=== PATIENT | male | born 1980 | race African-American/Black ===

== ENCOUNTER 2017-11-21 11:06 | Emergency (ER) | payer OTHER ==
[~2017-11-21] VITALS: Ht 175.3 cm; Wt 81.8 kg
[2017-11-21 11:07] VITALS: BP 185/95; PULSE 86; RESP 18; TEMP 98.8; O2SAT 100
[2017-11-21] MEDS ORDERED: DILT240C44 PO (12:33)
[2017-11-21] MEDS ORDERED: LOSA50TA PO (12:33)
[2017-11-21] MEDS ORDERED: LABE100T2 PO (12:33)
[2017-11-21] MEDS ORDERED: BACT800T5 PO (13:04)
[2017-11-21] MEDS ORDERED: CLIN150C14 PO (13:04)
--- NOTE | 2017-11-21 13:05 | PD ---
HPI Chief Complaint: Skin Problem Time Seen by Provider: 12:22 Travel History International Travel<30 days: No Contact w/Intl Traveler<30days: No Traveled to known affect area: No History of Present Illness HPI 37-year-old male complains of pain and swelling the right ear and right sided facial area. Patient states the symptoms started 2 days ago. Patient denies any injury. Patient denies any fever chills. Patient has history of end-stage renal disease and on dialysis. Patient also has history hypertension. Patient states that he is up-to-date with TD booster. PFSH Past Medical History Hypertension: Yes Renal Failure: Yes Influenza Vaccination: Yes Social History Alcohol Use: No Tobacco Use: No Substance Use: No Allergies-Medications (Allergen,Severity, Reaction): Coded Allergies: lisinopril (Verified Allergy, Unknown, 11/21/17) Reported Meds & Prescriptions Reported Meds & Active Scripts Active Reported Losartan (Losartan Potassium) 50 Mg Tab 50 Mg PO DAILY Diltiazem CD 24 HR 240 Mg Caper 240 Mg PO HS Labetalol (Labetalol HCl) 100 Mg Tab 100 Mg PO BID Review of Systems General / Constitutional: No: Fever Eyes: No: Visual changes HENT: No: Headaches Cardiovascular: No: Chest Pain or Discomfort Respiratory: No: Shortness of Breath Gastrointestinal: No: Abdominal Pain Genitourinary: No: Dysuria Musculoskeletal: No: Pain Skin: No Rash Neurologic: No: Weakness Psychiatric: No: Depression Endocrine: No: Polydipsia Hematologic/Lymphatic: No: Easy Bruising Physical Exam Narrative GENERAL: Well-nourished, well-developed patient. SKIN: Focused skin assessment warm/dry. HEAD: Normocephalic. EYES: No scleral icterus. No injection or drainage. NECK: Supple, trachea midline. No JVD or lymphadenopathy. CARDIOVASCULAR: Regular rate and rhythm without murmurs, gallops, or rubs. RESPIRATORY: Breath sounds equal bilaterally. No accessory muscle use. GASTROINTESTINAL: Abdomen soft, non-tender, nondistended. MUSCULOSKELETAL: No cyanosis, or edema. BACK: Nontender without obvious deformity. No CVA tenderness. Patient has a soft tissue mass on the right inferior earlobe at the angle amenable. Induration noted. No discharge. Data Data Last Documented VS Vital Signs Date Time Temp Pulse Resp B/P (MAP) Pulse Ox O2 Delivery O2 Flow Rate FiO2 11/21/17 12:35 17 11/21/17 11:07 98.8 86 185/95 (125) 100 Orders Orders Wound Culture And Gram Stain (11/21/17 12:53) MDM Medical Decision Making Medical Screen Exam Complete: Yes Emergency Medical Condition: Yes Differential Diagnosis Differential diagnosis including abscess, lymphadenitis, cellulitis. Narrative Course 37-year-old male with pain and swelling right earlobe and right facial area. Procedures Procedure Narrative I&D procedure: 1% lidocaine local anesthesia. Betadine wash. Small incision was made with # 11 scalpel. A large amount of pus recovered. 0.25 inch packing applied. Dressing applied. Wound culture obtained. Diagnosis Primary Impression: Facial abscess Patient Instructions: General Instructions Additional Instructions: Take medications as directed. Follow-up with personal physician. Return in 2 days for packing removal and wound check. Med/Other Pt SpecificInfo: Prescription(s) given Scripts Sulfamethoxazole-Trimethoprim (Bactrim DS) 800-160 Mg Tab 1 TAB PO DAILY for Infection, #10 TAB 0 Refills Prov: Tito Durham MD 11/21/17 Clindamycin (Clindamycin) 150 Mg Cap 150 MG PO Q6H for Infection, #40 CAP 0 Refills Prov: Tito Durham MD 11/21/17 Disposition: 01 DISCHARGE HOME Condition: Stable Tito Durham MD Nov 21, 2017 13:05
[2017-11-21 13:37] VITALS: BP 187/96
== END 2017-11-21 13:40 | disposition home or self-care (01) ==
LOC: NEPD 11:06
DX: L02.01 Cutaneous abscess of face (principal); I12.0 Hypertensive chronic kidney disease with stage 5 chronic kidney disease or end stage renal disease; B96.89 Other specified bacterial agents as the cause of diseases classified elsewhere; Z99.2 Dependence on renal dialysis
CPT/HCPCS: 10060; 87070; 87185; 87205

== ENCOUNTER 2017-11-23 09:11 | Emergency (ER) | payer OTHER ==
[~2017-11-23] VITALS: Ht 175.3 cm; Wt 82.0 kg
[~2017-11-23 09:11] MED LIST: BACT800T5 PO; CLIN150C14 PO; DILT240C44 PO; LABE100T2 PO; LOSA50TA PO
[2017-11-23 09:13] VITALS: BP 145/78; PULSE 75; RESP 13; TEMP 97.4; O2SAT 99
--- NOTE | 2017-11-23 09:25 | PD ---
HPI Chief Complaint: Wound/Suture/Staple Re-Check Time Seen by Provider: 09:24 Travel History International Travel<30 days: No Contact w/Intl Traveler<30days: No Traveled to known affect area: No History of Present Illness HPI 37-year-old male is here as instructed for wound recheck. He was seen 2 days ago with an abscess to the right ear which was drained. Packing was placed. He presents today for packing removal. He reports improvement in his symptoms. He has mild pain, aching, worse with palpation or chewing. Denies fevers or chills. He is taking antibiotics as prescribed. No other complaints at this time. PFSH Past Medical History Hx Anticoagulant Therapy: Yes Cardiovascular Problems: Yes Hypertension: Yes Renal Failure: Yes Social History Alcohol Use: No Tobacco Use: No Substance Use: No Allergies-Medications (Allergen,Severity, Reaction): Coded Allergies: lisinopril (Verified Allergy, Unknown, 11/23/17) Reported Meds & Prescriptions Reported Meds & Active Scripts Active Bactrim DS (Sulfamethoxazole-Trimethoprim) 800-160 Mg Tab 1 Tab PO DAILY Clindamycin (Clindamycin HCl) 150 Mg Cap 150 Mg PO Q6H Reported Losartan (Losartan Potassium) 50 Mg Tab 50 Mg PO DAILY Diltiazem CD 24 HR 240 Mg Caper 240 Mg PO HS Labetalol (Labetalol HCl) 100 Mg Tab 100 Mg PO BID Review of Systems General / Constitutional: No: Fever, Chills Skin: Positive Other (positive for pain, gauze in place) Physical Exam Narrative GENERAL: Well-developed well-nourished male in no acute distress SKIN: Warm and dry. There is an area of induration to the right lower earlobe, incision noted with some bloody purulent drainage. Packing was in place which has been removed. HEAD: Atraumatic. Normocephalic. EYES: Pupils equal and round. No scleral icterus. No injection or drainage. ENT: No nasal bleeding or discharge. Mucous membranes pink and moist. NECK: Trachea midline. No JVD. No lymphadenopathy Data Data Last Documented VS Vital Signs Date Time Temp Pulse Resp B/P (MAP) Pulse Ox O2 Delivery O2 Flow Rate FiO2 11/23/17 09:28 11/23/17 09:13 97.4 75 13 99 Orders Orders Ed Discharge Order (11/23/17 09:32) MDM Medical Decision Making Medical Screen Exam Complete: Yes Emergency Medical Condition: Yes Medical Record Reviewed: Yes Differential Diagnosis Packing removal, wound recheck, abscess, cellulitis Narrative Course The packing was removed without difficulty. Discussed signs and symptoms that warrant return to the emergency room. He is stable for discharge. Diagnosis Primary Impression: Abscess packing removal Additional Instructions: Wash area several times a day with warm soap and water. Medication as prescribed. Return for any acutely new or worsening symptoms. Med/Other Pt SpecificInfo: Wound Care Disposition: DISCHARGE HOME Condition: Stable Shyam Peralta Nov 23, 2017 09:25
== END 2017-11-23 09:55 | disposition home or self-care (01) ==
LOC: NEPK 09:11
DX: Z48.00 Encounter for change or removal of nonsurgical wound dressing (principal)
CPT/HCPCS: 99281